=== PATIENT | female | born 1975 | race Caucasian/White ===

== ENCOUNTER 2018-07-13 06:26 | Day surgery (SDC) | payer OTHER ==
[2018-07-13] MEDS ORDERED: LR 1,000 ML IV ONE (06:37)
[2018-07-13] MEDS ORDERED: BUPIVACAINE/EPI 0.5% 30 ML SDV ONE (06:42)
[2018-07-13] MEDS ORDERED: BUPIVACAINE 0.5% 30 ML SDV ONE (06:42)
[2018-07-13] MEDS ORDERED: fentaNYL 250 MCG/5 ML INJ ONE (06:58)
[2018-07-13] MEDS ORDERED: PROPOFOL/EMULSION 500 MG/50 ML BOTTLE IV ONE (06:59)
[2018-07-13] MEDS ORDERED: MIDAZOLAM 2 MG/2 ML VIAL IVP ONE (07:00)
[2018-07-13] MEDS ORDERED: SCOPOLAMINE HYDROBROMIDE 1 MG/3 DAYS PATCH TD SCH (07:00)
--- NOTE | 2018-07-13 07:03 | PDANEPAE ---
ANE History of Present Illness 43 y/o female for endometrial ablation and sling. history of asthma. ANE Past Medical History - Cardiovascular History Hx Hypertension: No Hx Arrhythmias: No Hx Chest Pain: No Hx Coronary Artery / Peripheral Vascular Disease: No Hx CHF / Valvular Disease: No Hx Palpitations: No - Pulmonary History Hx COPD: No Hx Asthma/Reactive Airway Disease: Yes Hx Recent Upper Respiratory Infection: No Hx Oxygen in Use at Home: No Hx Sleep Apnea: No Sleep Apnea Screening Result - Last Documented: Negative Pulmonary History Comment: ASTHMA TRIGGERS ENVIRONMENTAL - Neurologic History Hx Cerebrovascular Accident: No Hx Seizures: No Hx Dementia: No - Endocrine History Hx Diabetes: No Endocrine History Comment: HYPOTHYROID - Renal History Hx Renal Disorders: Yes 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 OVARIAN CYST - Chronic Pain History Chronic Pain: No - Surgical History Prior Surgeries: APPENDECTOMY. TOTAL THYROIDECTOMY. LT KNEE SCOPE X2. LT ACL REPAIR. LT ACHILLES TENDON. LT FOOT REMVL OF BONE ANE Review of Systems Review of systems is: negative Review of Systems: - Exercise capacity METS (RN): 4 METS ANE Patient History - Allergies Allergies/Adverse Reactions: latex Allergy (Verified 07/13/18 07:00) Hives - Home Medications Home Medications: ALBUTEROL SULFATE PRN 06/27/18 [Last Taken Unknown] Advair 250/50 (*) BID 06/27/18 [Last Taken Unknown] Allergy Medication DAILY 06/27/18 [Last Taken Unknown] Aspirin PRN 06/27/18 [Last Taken Unknown] Ibuprofen PRN 06/27/18 [Last Taken Unknown] Levothyroxine DAILY 06/27/18 [Last Taken Unknown] - Smoking Hx Smoking Status: Never smoked ANE Labs/Vital Signs - Vital Signs Height: 170.18 cm Weight: 88.451 kg ANE Physical Exam - Airway Neck exam: FROM Mallampati Score: Class 2 Mouth exam: normal dental/mouth exam - Pulmonary Pulmonary: no respiratory distress - Cardiovascular Cardiovascular: regular rate and rhythym - ASA Status ASA Status: II ANE Anesthesia Plan Anesthesia Plan: general endotracheal anesthesia
[2018-07-13] MEDS ORDERED: CEFAZOLIN 2 GM/DEXTROSE/100 ML BAG IV ONE (07:04)
[2018-07-13] MEDS ORDERED: SCOPOLAMINE HYDROBROMIDE 1 MG/3 DAYS PATCH TD ONE (07:04)
--- NOTE | 2018-07-13 07:22 | PDGENHP ---
History & Physical Chief Complaint: CARLOS, AUB History of Present Illness: 43 yo with AUB and bothersome CARLOS. Met in the office to discuss options for both - decided on ablation and TVT sling. Pertinent Past, Social, Family History: Non-contributory. Relevant Physical Exam: NAD, RRR, LCTAB. Assessment & Plan Assessment: Preop: Diagnostic hysteroscopy, endometrial ablation, TVT incontinence sling. - Weight-based abx. - Consents signed in clinic, RBA discussed. - Specific risks/complications of TVT sling discussed in detail. - Plan is for dc home today either from PACU or from observation/floor after passing voiding trial with PVR's < 150cc. LARISSA
[2018-07-13] MEDS ORDERED: ceFAZolin 2 GM/DEXTROSE 100 ML IV ONE (07:30)
[2018-07-13] MEDS ORDERED: VASOPRESSIN 20 UNIT/ML VIAL ONE (07:38)
[2018-07-13] MEDS ORDERED: oxyCODONE IR 5 MG TAB PO PRN (07:53)
[2018-07-13] MEDS ORDERED: fentaNYL 100 MCG/2 ML INJ IVP PRN (07:53)
[2018-07-13] MEDS ORDERED: DEXAMETHASONE 4 MG/ML VIAL IVP PRN (07:53)
[2018-07-13] MEDS ORDERED: PROMETHAZINE HCL 25 MG/ML INJ IVP PRN (07:53)
[2018-07-13] MEDS ORDERED: NALOXONE HCL 0.4 MG/ML INJ IVP PRN (07:53)
[2018-07-13] MEDS ORDERED: ALBUTEROL 3 ML DEYVIAL IH PRN (07:53)
[2018-07-13] MEDS ORDERED: METOCLOPRAMIDE 10 MG/2 ML VIAL IVP PRN (07:53)
[2018-07-13] MEDS ORDERED: HYDROCODONE/APAP 5/325 TAB PO PRN (07:53)
[2018-07-13] MEDS ORDERED: LABETALOL HCL 5 MG/ML 20 ML MDV IVP PRN (07:53)
[2018-07-13] MEDS ORDERED: LR 500 ML IV PRN (07:53)
[2018-07-13] MEDS ORDERED: MEPERIDINE 25 MG/0.5 ML AMP IVP PRN (07:53)
[2018-07-13] MEDS ORDERED: KETOROLAC 30 MG/1 ML SDV ONE (09:14)
[2018-07-13] MEDS ORDERED: KETOROLAC 30 MG/1 ML SDV IVP ONE (09:18)
--- NOTE | 2018-07-13 09:24 | POSTOPPROG ---
Post Op Note Date of Operation: 07/13/18 Surgeon: Frantz Lord Lawn Care Specialist: None Anesthesiologist: Aleksandra Obando Anesthesia: GET(General Endotracheal) Pre-op Diagnosis: AUB, CARLOS Post-op Diagnosis: Same Procedure: Diagnostic hysteroscopy, endometrial polypectomy/sampling, TVT, cysto Findings: Small endometrial polyps x many, normal bladder and bilateral UOs Inf/Abcess present in the surg proc area at time of surgery?: No EBL: Minimal Complications: None Specimen(s): Endometrial sampling
--- NOTE | 2018-07-13 09:40 | SUROPNOTE ---
[facility] Operative Report - Surgery Date of Operation: 07/13/18 Surgeon: Frantz Lord Communications Editor: None Anesthesiologist: Aleksandra Obando Anesthesia: GET(General Endotracheal) Pre-op Diagnosis: AUB, CARLOS Post-op Diagnosis: Same Procedure: Diagnostic hysteroscopy, endometrial polypectomy/sampling, TVT, cysto Findings: Small endometrial polyps x many, normal bladder and bilateral UOs Inf/Abcess present in the surg proc area at time of surgery?: No EBL: Minimal Complications: None Specimen(s): Endometrial sampling Technique: The patient was taken to the operating room where her identity and planned procedure were confirmed during timeout. The patient was placed under general anesthesia without issue. When anesthesia was found to be adequate, the patient was prepped and draped in the normal sterile fashion in dorsal lithotomy position in Albert stirrups. Weight-based antibiotics were given. The patient was straight cathed. Paterson speculum placed in the vagina and anterior lip of the cervix grasped with single-tooth tenaculum. The cervix was carefully serially dilated first to allow uterine sound measurement, then to 6mm to allow TruClear hysteroscope. Dilation proceeded easily with no concerns for injury to the uterus. Scope inserted and findings noted as above. The TruClear device was used to remove any polypoid lesions and sample other surrounding endometrium. The scope was removed and prepared for ablation. A Rebecca dilator was then advanced to the inner cervical os to measure the cervical length. The Lizette device was inserted to the fundus and cavity assessment initiated and passed. Treatment cycle initiated and full 120 seconds completed - successful ablation cycle. The hysteroscope was reinserted following ablation and confirmed uniform burn on all surfaces. The tenaculum was removed from the cervix and the tenaculum sites were found to be hemostatic. We then moved on to TVT. A 1cm incision was made through the full thickness of the anterior vaginal mucosa in the longitudinal plane approximately 1.5 cm proximal to the external urethral meatus after injection of dillute Vasopressin (20units in 100cc injectable saline). The edges of that incision were controlled with madyson clamps and tunnels were created to the inferior aspect of the pubic ramus bilaterally with Marietta scissors. Stab incisions were made on the lower abdomen approximately 2cm lateral to the midline just cephalad to the pubic bone bilaterally where the sling would exit the skin. The urethra deviated to the contralateral side of the body which the sheath of the cystoscope. The trocar of the Advantage Fit system was passed into the right vaginal tunnel and then passed carefully behind the pubic bone to exit the skin at our stab incision. The same procedure was completed on the contralateral side before cystoscopy was again performed and confirmed no bladder or urethral injuries. An pair of sutyre scissors was placed between the urethral and the sling and the mesh tightened in a completely tension-free manner. The free ends of the mesh were trimmed below the skin and the vaginal skin was closed over the sling in a running unlocked fashion with 2-0 vicryl. A munoz was not replaced. Local was injected into the incision area. Sponge, lap, needle, and instrument counts were announced as as correct. I was scrubbed and present for the entire procedure.
[2018-07-13] MEDS ORDERED: ONDANSETRON 4 MG/2 ML VIAL ONE (09:54)
[2018-07-13] MEDS ORDERED: ONDANSETRON 4 MG/2 ML VIAL IVP ONE (10:15)
--- NOTE | 2018-07-13 11:27 | POSTANESTH ---
Post Anesthetic Evaluation Cardiovascular Status: Normal, Stable Respiratory Status: Normal, Stable Level of Consciousness/Mental Status: Can Participate in Eval, Mildly Sleepy, Arousable Pain Control: Adequate, Prn Tx Ordered Nausea/Vomiting Control: Adequate, Prn Tx Ordered Complications Possibly Related to Anesthesia: None Noted
[2018-07-13 15:12] VITALS: BP 89/47
[2018-07-16] MEDS ORDERED: PATCH REMOVAL 1 EA PATCH TD SCH (07:01)
== END 2018-07-13 15:25 | disposition home or self-care (01) ==
LOC: FSGY 06:26
PROVIDERS: ATTEND Obstetrics & Gynecology
PROC: 0TUC0JZ Supplement Bladder Neck with Synthetic Substitute, Open Approach (ICD-10-PCS; principal; 2018-07-13 07:15)
PROC: 0UB98ZX Excision of Uterus, Via Natural or Artificial Opening Endoscopic, Diagnostic (ICD-10-PCS; principal; 2018-07-13 07:15)
DX: N39.3 Stress incontinence (female) (male) (principal); N93.9 Abnormal uterine and vaginal bleeding, unspecified; E03.9 Hypothyroidism, unspecified
CPT/HCPCS: 57288; 58558; C1782; C1771; J0690; J1885; J2250; J2405; J2704; J3010

== ENCOUNTER 2018-07-15 11:32 | Emergency (ER) | payer OTHER ==
[2018-07-15 11:41] VITALS: BP 115/89
--- NOTE | 2018-07-15 11:42 | EDPHY ---
H & P Stated Complaint: pulled urinary catherter yesterday, as not been able to urinate today Time Seen by Provider: 07/15/18 11:41 - Medical/Surgical History Hx Asthma: Yes Hx Chronic Respiratory Disease: No Hx Diabetes: No Hx Cardiac Disease: No Hx Renal Disease: No Hx Cirrhosis: No Hx Alcoholism: No Hx HIV/AIDS: No Hx Splenectomy or Spleen Trauma: No Other PMH: thyroid sx, uterus ablation, knee sx, asthma - Social History Smoking Status: Never smoked Constitutional: Initial Vital Signs Temperature (C) 36.7 C 07/15/18 11:38 Heart Rate 92 07/15/18 11:38 Respiratory Rate 18 07/15/18 11:38 Blood Pressure 115/89 H 07/15/18 11:38 O2 Sat (%) 99 07/15/18 11:38 O2 Delivery Mode Room Air Allergies/Adverse Reactions: latex Allergy (Verified 07/15/18 11:37) Hives Home Medications: Medication Instructions Recorded ALBUTEROL SULFATE PRN 06/27/18 Advair 250/50 (*) BID 06/27/18 Allergy Medication DAILY 06/27/18 Aspirin PRN 06/27/18 Ibuprofen PRN 06/27/18 Levothyroxine DAILY 06/27/18 oxyCODONE HCL/ACETAMINOPHEN 1 - 2 each PO Q4HRS PRN #25 tablet 07/13/18 [Percocet 5-325 mg Tablet] Cephalexin [Keflex (RX)] 500 mg PO TID #30 cap 07/15/18 Medical Decision Making ED Course/Re-evaluation: CHIEF COMPLAINT: Abdominal pain, urinary retention HISTORY OF PRESENT ILLNESS: The patient is a 43 y/o female with a history of a bladder sling (07/13/18) complaining of urinary retention and abdominal pain today. Two days ago the patient had bladder sling surgery with Dr. Lord to eliminate urinary incontinence. At 16:00 yesterday, the Balderas catheter was removed. She was able to urinate without difficulty yesterday. However, she has been unable to urinate today and is now having severe abdominal pain. Due to the urinary retention, she was advised to present to the emergency department. No headache, chest pain, shortness of breath, bowel complaints, numbness, paresthesias, fever. REVIEW OF SYSTEMS: A comprehensive 10 system review of systems is otherwise negative aside from elements mentioned in the history of present illness and medical decision making. PHYSICAL EXAM: HR, BP, O2 Sat, RR. Temp noted General Appearance: Standing up to due pain, appears in pain, alert, well hydrated, appropriate, and non-toxic appearing. Head: Atraumatic without scalp tenderness or obvious injury Eyes: Pupils equal, round, reactive to light and accommodation, EOMI, no trauma , no injection. Ears: Clear bilaterally, no perforation, normal landmarks Nose: Atraumatic, no rhinorrhea, clear. Throat: There is no erythema or exudates, no lesions, normal tonsils, mucus membranes moist. Neck: Supple, nontender, no lymphadenopathy. Respiratory: No retractions, no distress, no wheezes, and no accessory muscle use. Lungs are clear to auscultation bilaterally. Cardiovascular: Regular rate and rhythm, no murmurs, rubs, or gallops. Bilateral carotid, radial, dorsalis pedis, and posterior tibial pulses intact. Good capillary refill all extremities. Gastrointestinal: Abdomen is mildly distended with diffuse tenderness. Abdomen is soft, no masses, no rebound, no guarding, no peritoneal signs. Musculoskeletal: Normal active ROM of all extremities, atraumatic. Neurological: Alert, appropriate, and interactive. The patient has normal DTRs and non-focal cranial nerves, motor, sensory, and cerebellar exam. Skin: No rashes, good turgor, no nodules on palpation. Past medical history: Asthma Past surgical history: Bladder sling, thyroid surgery, uterus ablation, knee surgery Family history: Denies Social history: Life partner at bedside, employed at [employer], lives in [place] DIAGNOSTICS/PROCEDURES/CRITICAL CARE TIME: Bladder scan: 850mL of urine in the bladder DIFFERENTIAL DIAGNOSIS: The differential diagnosis for the patient's urinary retention included but was not limited to surgical side effect, medication side effect, neurologic causes, and infection. MEDICAL DECISION MAKING: The patient is a 43 y/o female with a history of a bladder sling (07/13/18) presenting with urinary retention and abdominal pain today. She was advised to present to the emergency department by her FURNITURE ASSOCIATE, Dr. Lord, as he would like this patient to have a catheter placed again. On exam, the patient is standing up in a pain and appears uncomfortable. Bladder scan and UA ordered; catheter will be placed. 500mg PO Keflex administered. 1155: The patient has voided 800-900mL of urine via the catheter. Her bladder scan revealed around 850mL of urine in her bladder prior to catheter placement. 1206: Reassessed patient and discussed follow up with Dr. Lord. I have also discussed taking Keflex as prescribed prophylactically. Return precautions provided; patient is comfortable with this plan. - Data Points Medications Given: Discontinued Medications Cephalexin HCl (Keflex) 500 mg PO EDNOW ONE PRN Reason: Protocol Stop: 07/15/18 11:46 Last Admin: 07/15/18 12:02 Dose: 500 mg Departure - Departure Disposition: Home, Routine, Self-Care Clinical Impression: Urinary retention Condition: Good Instructions: Acute Urinary Retention in Women (ED) Additional Instructions: 1. Take Keflex as prescribed. 2. Keep the catheter in place until your follow up with Dr. Lord. 3. Follow up with Dr. Lord, please call them for an appointment. 4. Return to the Emergency Department for fever, worsening pain, flank pain or failure to improve within 72 hours. Referrals: Frantz Lord MD [Medical Doctor] - As per Instructions Prescriptions: Cephalexin [Keflex (RX)] 500 mg PO TID #30 cap Report Scribed for: Jewel Espinoza Report Scribed by: Rosalba New Date of Report: 07/15/18 Time of Report: 12:28
[2018-07-15] MEDS ORDERED: CEPHALEXIN 500 MG CAP PO ONE (11:45)
== END 2018-07-15 12:19 | disposition home or self-care (01) ==
PROC: 0T9B70Z Drainage of Bladder with Drainage Device, Via Natural or Artificial Opening (ICD-10-PCS; principal; 2018-07-15)
DX: R33.9 Retention of urine, unspecified (principal); R10.9 Unspecified abdominal pain; Z98.890 Other specified postprocedural states

== ENCOUNTER 2019-03-01 09:35 | Emergency (ER) | payer OTHER ==
[2019-03-01] MEDS ORDERED: NS 1,000 ML IV ONE (11:56)
[2019-03-01] MEDS ORDERED: KETOROLAC 30 MG/1 ML SDV IVP ONE (11:56)
[2019-03-01] MEDS ORDERED: ONDANSETRON 4 MG/2 ML VIAL IVP ONE (11:56)
--- NOTE | 2019-03-01 12:04 | EDPHY ---
H & P Stated Complaint: rlq/r flank pain blood in urine Time Seen by Provider: 03/01/19 11:31 HPI/ROS: CHIEF COMPLAINT: Right flank pain and hematuria HISTORY OF PRESENT ILLNESS: Patient is a 43-year-old female who comes to the emergency department complaining of right flank pain and hematuria for the last 3 days. No fever. No nausea vomiting. She has a history of appendectomy. She has had ovarian cysts in the past but has not since she had her uterine ablated several years ago. She noticed some streaky blood in her urine yesterday but has not had any today. She saw her primary doctor yesterday who obtained a urine sample and told her it looked unremarkable and sent for cultures. She states that the pain is rather constant. She has not taken any pain medication. Severity: Moderate Modifying factors: None REVIEW OF SYSTEMS: Constitutional: denies: chills, fever, recent illness, recent injury EENTM: denies: blurred vision, double vision, nose congestion Respiratory: denies: cough, shortness of breath Cardiac: denies: chest pain, irregular heart rate, lightheadedness, palpitations Gastrointestinal/Abdominal: denies: abdominal pain, diarrhea, nausea, vomiting, blood streaked stools Genitourinary: See HPI Musculoskeletal: denies: joint pain, muscle pain Skin: denies: lesions, rash, jaundice, bruising Neurological: denies: headache, numbness, paresthesia, tingling, dizziness, weakness Hematologic/Lymphatic: denies: blood clots, easy bleeding, easy bruising Immunologic/allergic: denies: HIV/AIDS, transplant 10 systems reviewed and negative except as noted EXAM: GENERAL: Well-appearing, well-nourished and in moderate distress. HEAD: Atraumatic, normocephalic. EYES: Pupils equal round and reactive to light, extraocular movements intact, sclera anicteric, conjunctiva are normal. ENT: TMs normal, nares patent, oropharynx clear without exudates. Moist mucous membranes. NECK: Normal range of motion, supple without lymphadenopathy or JVD. LUNGS: Breath sounds clear to auscultation bilaterally and equal. No wheezes rales or rhonchi. HEART: Regular rate and rhythm without murmurs, rubs or gallops. ABDOMEN: Mild right lower quadrant tenderness, normoactive bowel sounds. No guarding, no rebound. No masses appreciated. BACK: No CVA tenderness, no spinal tenderness, step-offs or deformities EXTREMITIES: Normal range of motion, no pitting or edema. No clubbing or cyanosis. NEUROLOGICAL: Cranial nerves II through XII grossly intact. Normal speech, normal gait. 5/5 strength, normal movement in all extremities, normal sensation , normal reflexes PSYCH: Normal mood, normal affect. SKIN: Warm, dry, normal turgor, no visible rashes or lesions. Source: Patient Exam Limitations: No limitations - Personal History LMP (Females 10-55): Post Menopausal Current Tetanus Diphtheria and Acellular Pertussis (TDAP): Yes - Medical/Surgical History Hx Asthma: Yes Hx Chronic Respiratory Disease: No Hx Diabetes: No Hx Cardiac Disease: No Hx Renal Disease: No Hx Cirrhosis: No Hx Alcoholism: No Hx HIV/AIDS: No Hx Splenectomy or Spleen Trauma: No Other PMH: thyroid sx, uterus ablation, knee sx, asthma - Family History Significant Family History: No pertinent family hx - Social History Smoking Status: Never smoked Alcohol Use: None Constitutional: Initial Vital Signs Temperature (C) 36.8 C 03/01/19 09:44 Heart Rate 85 03/01/19 09:44 Respiratory Rate 18 03/01/19 09:44 Blood Pressure 122/94 H 03/01/19 09:44 O2 Sat (%) 96 03/01/19 09:44 O2 Delivery Mode Room Air Allergies/Adverse Reactions: latex Allergy (Verified 03/01/19 09:43) Hives Home Medications: Medication Instructions Recorded ALBUTEROL SULFATE PRN 06/27/18 Advair 250/50 (*) BID 06/27/18 Levothyroxine DAILY 06/27/18 Ibuprofen 600 mg PO TID PRN #30 tablet 03/01/19 Ondansetron Odt [Zofran Odt 4 mg 4 mg PO Q4 PRN #20 tab 03/01/19 (RX)] Tamsulosin HCl [Flomax] 0.4 mg PO DAILY #10 cap 03/01/19 oxyCODONE/APAP 5/325 [Percocet 1 - 2 tab PO Q4H PRN #10 tab 03/01/19 5/325] Medical Decision Making ED Course/Re-evaluation: The patient is feeling somewhat better. She was nauseous after CT scan but has received Zofran. She is asking for p.o.. We discussed her CT results. We discussed pain control. She would like to go home. We will 1st give her a p.o. Challenge. 2:00 p.m. patient is feeling much better. She is asking to go home. She is asking for a work note. We again discussed the medication recommendations as well as follow-up as well as straining her urine. Differential Diagnosis: Partial list of the Differential diagnosis considered include but were not limited to; kidney stone, urinary tract infection, ovarian cyst and although unlikely based on the history and physical exam, I also considered perforation, ischemia, volvulus. I discussed these differential diagnoses and the plan with the patient as well as the usual and expected course. The patient understands that the diagnosis is provisional and that in medicine we are not always correct and that further workup is often warranted. Usual and customary warnings were given. All of the patient's questions were answered. The patient was instructed to return to the emergency department should the symptoms at all worsen or return, otherwise to followup with the physician as we discussed. - Data Points Laboratory Results: Laboratory Results 03/01/19 11:30 03/01/19 11:30 Medications Given: Discontinued Medications Sodium Chloride (Ns) 1,000 mls @ 0 mls/hr IV EDNOW ONE; Wide Open PRN Reason: Protocol Stop: 03/01/19 11:57 Last Admin: 03/01/19 12:21 Dose: 1,000 mls Ketorolac Tromethamine (Toradol) 15 mg IVP EDNOW ONE Stop: 03/01/19 11:57 Last Admin: 03/01/19 12:20 Dose: 15 mg Ondansetron HCl (Zofran) 4 mg IVP EDNOW ONE Stop: 03/01/19 11:57 Last Admin: 03/01/19 12:21 Dose: 4 mg Tamsulosin HCl (Flomax) 0.4 mg PO EDNOW ONE Stop: 03/01/19 12:59 Last Admin: 03/01/19 13:26 Dose: 0.4 mg Departure - Departure Disposition: Home, Routine, Self-Care Clinical Impression: Kidney stone on right side Condition: Fair Instructions: Kidney Stones (ED) Referrals: Maryam Joy MD [Primary Care Provider] - As per Instructions Jessica Bishop MD [Medical Doctor] - As per Instructions Stand Alone Forms: Work Excuse Prescriptions: Ibuprofen 600 mg PO TID PRN #30 tablet PRN Reason: Pain, Moderate Ondansetron Odt [Zofran Odt 4 mg (RX)] 4 mg PO Q4 PRN #20 tab PRN Reason: Nausea & Vomiting oxyCODONE/APAP 5/325 [Percocet 5/325] 1 - 2 tab PO Q4H PRN #10 tab PRN Reason: Pain, Severe Tamsulosin HCl [Flomax] 0.4 mg PO DAILY #10 cap
[2019-03-01 12:05] LABS: PLATELET COUNT 368 10^3/uL (150-400)
[2019-03-01 12:18] LABS: INR 0.99 (0.83-1.16); PROTIME(PATIENT) 12.7 SEC (12.0-15.0)
[2019-03-01] MEDS ORDERED: TAMSULOSIN HCL 0.4 MG CAP PO ONE (12:58)
[2019-03-01 14:58] VITALS: BP 119/81
== END 2019-03-01 14:30 | disposition home or self-care (01) ==
DX: N20.0 Calculus of kidney (principal); E86.9 Volume depletion, unspecified
CPT/HCPCS: 96374; J1885; J2405